=== PATIENT | female | born 1970 | race Caucasian/White ===

== ENCOUNTER 2018-11-10 13:29 | Outpatient (CLI) | payer OTHER ==
[2018-11-10] MEDS ORDERED: NAPR220C2 PO (13:57)
[2018-11-10] MEDS ORDERED: ATOR10TA9 PO (13:57)
[2018-11-10] MEDS ORDERED: ACETAMINOPHEN PO (13:57)
[2018-11-10] MEDS ORDERED: CAFF PO (13:57)
[2018-11-10 14:21] LABS: BASOPHILS # (AUTO) 0.07 x10^3/uL (0-0.1); BASOPHILS % (AUTO) 1 % (0-1); EOSINOPHILS % (AUTO) 5 % (1-7); LYMPHOCYTES # (AUTO) 1.96 x10^3/uL (1-3.4); LYMPHOCYTES % (AUTO) 22 % (22-44); MD NO; MEAN CORPUSCULAR HEMOGLOBIN 27.2 pg (27.0-34.8); MEAN CORPUSCULAR HGB CONC 32.3 g/dL (32.4-35.8); MEAN CORPUSCULAR VOLUME 84.2 fL (80-100); MEAN PLATELET VOLUME 8.5 fL (7.4-10.4); MONOCYTES # (AUTO) 0.62 x10^3/uL (0.2-0.8); MONOCYTES % (AUTO) 7 % (2-9); NEUTROPHILS # (AUTO) 5.68 x10^3/uL (1.8-6.8); NEUTROPHILS % (AUTO) 65 % (42-75); PLATELET COUNT 350 x10^3/uL (130-400); RED BLOOD COUNT 4.41 x10^6/uL (3.82-5.3)
[2018-11-10 15:01] LABS: MICROSCOPIC NOT IND
[2018-11-10 15:16] LABS: CULTURE INDICATED? NO
== END 2018-11-10 23:59 | disposition home or self-care (01) ==
LOC: STAR 13:29
PROVIDERS: ATTEND Obstetrics & Gynecology
DX: Z01.818 Encounter for other preprocedural examination (principal); N93.8 Other specified abnormal uterine and vaginal bleeding
CPT/HCPCS: 36415; 81003; 84703; 85025

== ENCOUNTER 2018-11-14 14:51 | Day surgery (SDC) | payer OTHER ==
[~2018-11-14] VITALS: Ht 165.1 cm; Wt 72.1 kg
[~2018-11-14 14:51] MED LIST: ACETAMINOPHEN PO; ATOR10TA9 PO; CAFF PO; NAPR220C2 PO
[2018-11-14] MEDS ORDERED: LACTATED RINGERS 1,000 ML IV SCH (15:06)
[2018-11-14 15:17] VITALS: BP 109/75
[2018-11-14] MEDS ORDERED: BUPIVACAINE/PF 0.25% ONE (15:28)
[2018-11-14] MEDS ORDERED: SILVER NITRATE STICK TP ONE (15:28)
[2018-11-14] MEDS ORDERED: EPINEPHRINE 1 MG/ML, 1ML ONE (15:28)
[2018-11-14 15:29] LABS: HCG UR SG 1.015 (1.003-1.030)
[2018-11-14] MEDS ORDERED: FENTANYL PF 100 MCG/2ML ONE ×2 (16:50→17:28)
[2018-11-14] MEDS ORDERED: MIDAZOLAM 1 MG/ML, 2ML ONE (16:50)
[2018-11-14] MEDS ORDERED: DEXAMETHASONE 4 MG/ML, 1ML ONE ×2 (16:52)
[2018-11-14] MEDS ORDERED: ONDANSETRON 2MG/ML, 2ML ONE (16:52)
[2018-11-14] MEDS ORDERED: KETOROLAC 30 MG/1 ML ONE (16:52)
[2018-11-14] MEDS ORDERED: PHENYLEPHRINE 10 MG/ML ONE ×2 (16:53→17:07)
[2018-11-14] MEDS ORDERED: PROPOFOL 10 MG/ML, 20ML ONE (17:07)
[2018-11-14] MEDS ORDERED: ACETAMINOPHEN 325 MG TABLET PO PRN (17:30)
[2018-11-14] MEDS ORDERED: MEPERIDINE/PF 25MG/0.5ML IVPush PRN (17:30)
[2018-11-14] MEDS ORDERED: FENTANYL PF 100 MCG/2ML IV PRN (17:30)
[2018-11-14] MEDS ORDERED: ALBUTEROL SULFATE 2.5 MG/3 ML NPPB PRN (17:30)
[2018-11-14] MEDS ORDERED: HYDROmorphone 2 MG/ML, 1ML IVPush PRN (17:30)
[2018-11-14] MEDS ORDERED: LABETALOL 5MG/ML, 20ML IV PRN (17:30)
[2018-11-14] MEDS ORDERED: OXYcodone 5 MG/5 ML ORAL.SOL UDC PO PRN (17:30)
[2018-11-14] MEDS ORDERED: PROMETHAZINE 25 MG/ML, 1ML IV PRN (17:30)
[2018-11-14] MEDS ORDERED: HALOPERIDOL 5 MG/ML IV PRN (17:30)
[2018-11-14] MEDS ORDERED: ACETAMINOPHEN 650 MG/20.3 ML UDC ONE (18:12)
[2018-11-14] MEDS ORDERED: OXYcodone 5 MG/5 ML ORAL.SOL UDC ONE (18:12)
== END 2018-11-14 19:38 | disposition home or self-care (01) ==
LOC: OR 14:51 → 4NOR 16:45 → OR 19:38
PROVIDERS: ATTEND Obstetrics & Gynecology
DX: N84.0 Polyp of corpus uteri (principal); J45.909 Unspecified asthma, uncomplicated; F17.290 Nicotine dependence, other tobacco product, uncomplicated; Z72.89 Other problems related to lifestyle; Z79.899 Other long term (current) drug therapy; Z88.0 Allergy status to penicillin; Z88.8 Allergy status to other drugs, medicaments and biological substances; Z98.51 Tubal ligation status; Z90.49 Acquired absence of other specified parts of digestive tract; Z82.49 Family history of ischemic heart disease and other diseases of the circulatory system; Z80.41 Family history of malignant neoplasm of ovary
CPT/HCPCS: 58563; 81025; 88305; J1100; J1885; J2250; J2370; J2405; J2704; J3010; G0378; J0171; J3490